=== PATIENT | female | born 1980 | race Caucasian/White ===

== ENCOUNTER 2017-02-18 21:01 | Inpatient (IN) | payer MEDICAID ==
[~2017-02-18] VITALS: Ht 157.5 cm; Wt 83.0 kg
[~2017-02-18 21:01] MED LIST: ACET-2619; PREN-385 PO
[2017-02-18] MEDS ORDERED: OXYTOCIN 10 UNITS/ML VIAL IM ONE (21:35)
[2017-02-18] MEDS ORDERED: PROMETHAZINE 25 MG/ML VIAL IVP PRN (21:35)
[2017-02-18] MEDS ORDERED: OXYTOCIN 20 UNITS/LR PREMIX 1,000 ML IV SCH (21:35)
[2017-02-18] MEDS ORDERED: NALBUPHINE HYDROCHLORIDE 10 MG/ML VIAL IVP PRN (21:35)
[2017-02-18] MEDS ORDERED: AMPICILLIN 2,000 MG in NACL 0.9% 100 ML IV SCH (21:50)
[2017-02-18 22:12] LABS: BASOPHILS # (AUTO) 0.2 K/uL (0.00-0.22); BASOPHILS % (AUTO) 2.3 % (0.0-2.0); EOSINOPHILS # (AUTO) 0.1 K/uL (0-0.4); EOSINOPHILS % (AUTO) 1.9 % (0.0-4.0); HEMATOCRIT 35.3 % (36-48); HEMOGLOBIN 11.7 g/dL (12.0-16.0); LYMPHOCYTES # (AUTO) 1.9 K/uL (2.5-16.5); LYMPHOCYTES % (AUTO) 28.2 % (20.5-51.1); MEAN CORPUSCULAR HEMOGLOBIN 30 pg (27-31); MEAN CORPUSCULAR HGB CONC 33 g/dL (33-37); MEAN CORPUSCULAR VOLUME 91 fL (80-94); MONOCYTES # (AUTO) 0.5 K/uL (0.8-1.0); MONOCYTES % (AUTO) 8.2 % (1.7-9.3); NEUTROPHILS # (AUTO) 3.9 K/uL (1.8-7.7); NEUTROPHILS % (AUTO) 59.4 % (42.2-75.2); PLATELET COUNT (AUTO) 178 K/uL (140-450); RED CELL DISTRIBUTION WIDTH 13.8 % (11.6-13.7); WHITE BLOOD COUNT (AUTO) 6.6 K/uL (4.8-10.8)
[2017-02-18 22:17] LABS: ANION GAP 12.1 (8-16); CALCIUM 8.4 mg/dL (8.5-10.1); CARBON DIOXIDE 23.4 mmol/L (21-32); CREATININE 0.6 mg/dL (0.6-1.3); POTASSIUM 3.5 mmol/L (3.5-5.1)
[2017-02-18] MEDS ORDERED: AMPICILLIN 2,000 MG VIAL ONE (22:17)
[2017-02-18 22:19] LABS: APPEARANCE,URINE CLEAR (CLEAR); BILIRUBIN,URINE NEGATIVE (NEGATIVE); BLOOD, URINE NEGATIVE (NEGATIVE); COLOR,URINE YELLOW (YELLOW); LEUKOCYTE ESTERASE ,URINE TRACE (NEGATIVE); NITRITE, URINE NEGATIVE (NEGATIVE); PH,URINE 6.5 (5.0-9.0); PROTEIN,URINE NEGATIVE (NEGATIVE); UGLUCOSE NEGATIVE (NEGATIVE); UROBILINOGEN,URINE 0.2 EU/dL (0.2 - 1)
[2017-02-18 22:21] LABS: BACTERIA,URINE RARE /HPF (None Seen); RBC,URINE 0-3 /HPF (0-5); WBC,URINE 0-3 /HPF (0-5)
[2017-02-18 22:23] LABS: ALBUMIN 2.6 g/dL (3.4-5.0); TOTAL BILIRUBIN 0.4 mg/dL (0.0-1.0); TOTAL PROTEIN, SERUM 6.3 g/dL (6.4-8.2)
[2017-02-18] MEDS: LACTATED RINGERS 1,000 ML IV SCH (22:38)
[2017-02-18] MEDS ORDERED: FERR325E14 PO (22:55)
[2017-02-18 22:59] VITALS: BP 125/74
[2017-02-19] MEDS: AMPICILLIN 1,000 MG in NACL 0.9% 50 ML IV SCH ×2 (03:00→14:45)
[2017-02-19] MEDS ORDERED: AMPICILLIN 1,000 MG VIAL ONE ×4 (03:05→14:43)
--- NOTE | 2017-02-19 09:03 | NUR ---
PATIENT HAS BEEN SCREENED AND CATEGORIZED LOW NUTRITION RISK. PATIENT WILL BE SEEN WITHIN 7 DAYS OF ADMISSION. 02/25/[address]
[2017-02-19] MEDS ORDERED: OXYTOCIN 20 UNITS/LR PREMIX 1,000 ML IV ONE (11:52)
[2017-02-19] MEDS ORDERED: OXYTOCIN 20 UNITS/LR PREMIX 1,000 ML IV SCH (12:25)
[2017-02-19] MEDS ORDERED: ROPIVACAINE 0.2%/NS PREMIX 250 ML EPI ONE (12:59)
[2017-02-19] MEDS: LACTATED RINGERS 1,000 ML IV SCH (13:08)
[2017-02-19] MEDS ORDERED: OXYTOCIN 10 UNITS/ML VIAL ONE (14:54)
[2017-02-19] MEDS ORDERED: oxyCODONE/APAP 5/325 MG 1 TAB TAB PO PRN (15:15)
[2017-02-19] MEDS ORDERED: MEASLES, MUMPS, AND RUBELLA 1 VIAL SQVAC PRN (15:15)
[2017-02-19] MEDS ORDERED: OXYTOCIN 10 UNITS/ML VIAL IM PRN (15:15)
[2017-02-19] MEDS ORDERED: METHYLERGONOVINE 0.2 MG TAB PO PRN (15:15)
[2017-02-19] MEDS ORDERED: WITCH HAZEL 40 PAD PACKAGE TP PRN (15:15)
[2017-02-19] MEDS ORDERED: SODIUM PHOSPHATE 118 ML ENEM RC PRN (15:15)
[2017-02-19] MEDS ORDERED: TEMAZEPAM 15 MG CAP PO PRN (15:15)
[2017-02-19] MEDS ORDERED: BENZOCAINE/MENTHOL 20%-0.5% 60 GM CAN TP PRN (15:15)
[2017-02-19] MEDS ORDERED: BISACODYL 10 MG SUPP RC PRN (15:15)
[2017-02-19] MEDS ORDERED: METHYLERGONOVINE 0.2 MG/ML AMP IM PRN (15:15)
[2017-02-19] MEDS: HYDROcodone/APAP 5/325 MG 1 TAB TAB PO PRN (20:40)
[2017-02-19] MEDS ORDERED: DOCUSATE SOD/SENNA 50/8.6 MG 1 TAB PO SCH (21:00)
[2017-02-20] MEDS: HYDROcodone/APAP 5/325 MG 1 TAB TAB PO PRN ×2 (04:29→22:28)
[2017-02-20 06:28] LABS: HEMATOCRIT 35.9 % (36-48); HEMOGLOBIN 11.7 g/dL (12.0-16.0)
[2017-02-20 08:36] LABS: HEPATITIS B SURFACE ANTIGEN Negative (Negative); RUBELLA AB IGG 3.71 index (Immune >0.99)
[2017-02-20] MEDS ORDERED: DOCUSATE SOD/SENNA 50/8.6 MG 1 TAB PO SCH (21:00)
[2017-02-21] MEDS: HYDROcodone/APAP 5/325 MG 1 TAB TAB PO PRN (06:53)
== END 2017-02-21 17:00 | disposition home or self-care (01) | DRG 560 ==
LOC: MLD 21:01 → OBSVTOIN 21:31 → MFCC 02-19 20:20
PROVIDERS: ADMIT Obstetrics & Gynecology; ATTEND Obstetrics & Gynecology
PROC: 10E0XZZ Delivery of Products of Conception, External Approach (ICD-10-PCS; principal; 2017-02-19)
PROC: 3E0S3CZ (ICD-10-PCS; 2017-02-19)
PROC: 00HU33Z Insertion of Infusion Device into Spinal Canal, Percutaneous Approach (ICD-10-PCS; 2017-02-19)
PROC: 3E0234Z Introduction of Serum, Toxoid and Vaccine into Muscle, Percutaneous Approach (ICD-10-PCS; 2017-02-20)
DX: O99.824 Streptococcus B carrier state complicating childbirth (principal); Z23 Encounter for immunization; Z37.0 Single live birth; Z3A.39 39 weeks gestation of pregnancy; Z82.49 Family history of ischemic heart disease and other diseases of the circulatory system
CPT/HCPCS: 36415; 51702; 59409; 76815; 80053; 81001; 85018; 85025; 86592; 86762; 86886; 86900; 86901; 87340; 87653-90; 90707; 90715; G0378; J0290; J2590; J2795; J7120; Q0092

== ENCOUNTER 2017-11-13 05:00 | Emergency (ER) | payer MEDICAID ==
[~2017-11-13] VITALS: Ht 157.5 cm; Wt 87.8 kg
[~2017-11-13 05:00] MED LIST changes: +FERR325E14 PO; -PREN-385 PO
[2017-11-13 05:05] VITALS: BP 143/87
--- NOTE | 2017-11-13 05:13 | NUR ---
PT.AMBULATED TO ER BED 1
[2017-11-13] MEDS ORDERED: LORazepam 1 MG TAB PO ONE (05:25)
--- NOTE | 2017-11-13 05:25 | NUR ---
36 Y/O F W/C/O CHEST PAIN/PALPITATION/NAUSEA/L UPPER ABD PAIN X LAST THURSDAY 5 DAYS AGO AND NUMBNESS TO L ARM X LAST NIGHT. MED HX HYPERLIPEDEMIA.
[2017-11-13 05:48] LABS: BASOPHILS % (AUTO) 0.2 % (0.0-2.0); EOSINOPHILS # (AUTO) 0.1 K/uL (0-0.4); EOSINOPHILS % (AUTO) 1.4 % (0.0-4.0); HEMATOCRIT 36.1 % (36-48); HEMOGLOBIN 12.2 g/dL (12.0-16.0); LYMPHOCYTES # (AUTO) 2.4 K/uL (2.5-16.5); LYMPHOCYTES % (AUTO) 47.1 % (20.5-51.1); MEAN CORPUSCULAR HEMOGLOBIN 30 pg (27-31); MEAN CORPUSCULAR HGB CONC 34 g/dL (33-37); MEAN CORPUSCULAR VOLUME 88.7 fL (80-94); MONOCYTES # (AUTO) 0.4 K/uL (0.8-1.0); MONOCYTES % (AUTO) 7.1 % (1.7-9.3); NEUTROPHILS # (AUTO) 2.3 K/uL (1.8-7.7); NEUTROPHILS % (AUTO) 44.2 % (42.2-75.2); PLATELET COUNT (AUTO) 194 K/uL (140-450); RED BLOOD CELL COUNT(AUTO) 4.07 MIL/uL (4.20-5.40); WHITE BLOOD COUNT (AUTO) 5.1 K/uL (4.8-10.8)
--- NOTE | 2017-11-13 05:51 | NUR ---
PT RESTING IN BED, NSR ON MONITOR, NO S/S OF DISTRESS NOTED. AWATING FOR RESULTS.
[2017-11-13 05:58] LABS: ANION GAP 15.1 (8-16); CREATININE 0.7 mg/dL (0.6-1.3); POTASSIUM 3.1 mmol/L (3.5-5.1)
[2017-11-13 06:04] LABS: ALBUMIN 3.6 g/dL (3.4-5.0); TOTAL BILIRUBIN 0.8 mg/dL (0.0-1.0)
[2017-11-13 06:10] LABS: CREATINE KINASE MB 2.2 ng/mL (0-3.6)
--- NOTE | 2017-11-13 06:41 | NUR ---
PT ASLEEP VSS, ON MONITOR,WILL CONT TO MONITOR.
[2017-11-13 06:50] VITALS: BP 113/76
== END 2017-11-13 06:50 | disposition home or self-care (01) ==
LOC: MED 05:00
DX: R07.89 Other chest pain (principal); R00.2 Palpitations; R11.0 Nausea
CPT/HCPCS: 36415; 71045; 80053; 82550; 82553; 83690; 84484; 85025; 93005; 99285; Q0092

== ENCOUNTER 2018-12-18 01:35 | Emergency (ER) | payer MEDICAID ==
[~2018-12-18] VITALS: Ht 167.6 cm; Wt 70.3 kg
[2018-12-18 01:38] VITALS: BP 135/79
--- NOTE | 2018-12-18 01:45 | NUR ---
PT AMBULATED TO ER BED 2
--- NOTE | 2018-12-18 01:45 | NUR ---
PT AMBULATED TO ROOM 2
--- NOTE | 2018-12-18 01:48 | NUR ---
DR. PALACIOS BEDSIDE EVALUATING PT
--- NOTE | 2018-12-18 01:50 | NUR ---
37 Y/O F PRESENTED TO ED WITH C/O CHEST PAIN X3 DAYS. 7/10 PAIN, DULL. EXPERIENCES CHEST PAIN DURING COUGH ONLY. C/O SOUGH THROAT AND R EAR PAIN. PER PT " HAVE RINGING IN MY RIGHT EAR." TYMPANIC MEMBRANE INTACT, NO REDNESS NOTED. VOMITTED M3NOSMS AFTER COUGHING ATTACK YESTERDAY. NO ERYTHEMA OR EXUDATED NOTED TO THROAT. BED IN LOWEST POSITON. ERMD NOTIFIED. WILL CONTINUE TO MONITOR.
[2018-12-18] MEDS ORDERED: KETOROLAC 60 MG/2 ML VIAL IM ONE (01:55)
--- NOTE | 2018-12-18 02:15 | NUR ---
Patient discharged with v/s stable. Written and verbal after care instructions given and explained. Patient alert, oriented and verbalized understanding of instructions. Ambulatory with steady gait. All questions addressed prior to discharge. ID band removed. Patient advised to follow up with PMD. Rx of Motrin and Prednisone given. Patient educated on indication of medication including possible reaction and side effects. Opportunity to ask questions provided and answered.
== END 2018-12-18 02:15 | disposition home or self-care (01) ==
LOC: MED 01:35
DX: J02.9 Acute pharyngitis, unspecified (principal); R07.89 Other chest pain; R05 Cough; R11.10 Vomiting, unspecified; H92.01 Otalgia, right ear; Z79.1 Long term (current) use of non-steroidal anti-inflammatories (NSAID); Z79.899 Other long term (current) drug therapy
CPT/HCPCS: 93005; 96372; 99283; J1885

== ENCOUNTER 2022-06-01 05:53 | Emergency (ER) | payer MEDICAID ==
[~2022-06-01] VITALS: Ht 157.5 cm; Wt 81.6 kg
[2022-06-01 05:56] VITALS: BP 150/89
--- NOTE | 2022-06-01 05:56 | NUR ---
TO BED AMBULATORY
--- NOTE | 2022-06-01 06:00 | NUR ---
PT A&O X4. PT C/O RIGHT EAR PAIN. NO OTHER COMPLAINTS.
--- NOTE | 2022-06-01 06:14 | NUR ---
Patient being evaluated by physician Karin Gregory at bedside.
[2022-06-01] MEDS ORDERED: AMOX1TAB8 PO (06:26)
[2022-06-01] MEDS ORDERED: OFLO5SOL27 RIGHT EAR (06:26)
[2022-06-01] MEDS ORDERED: IBUP-2213 PO (06:26)
--- NOTE | 2022-06-01 06:40 | NUR ---
Patient discharged with v/s stable. Written and verbal after care instructions given and explained. Patient alert, oriented and verbalized understanding of instructions. Ambulatory with steady gait. All questions addressed prior to discharge. ID band removed. Patient advised to follow up with PMD. Rx of AMOXICILLIN AND IBUPROFEN given. Patient educated on indication of medication including possible reaction and side effects. Opportunity to ask questions provided and answered.
[2022-06-01 06:44] VITALS: BP 150/89
== END 2022-06-01 06:44 | disposition home or self-care (01) ==
LOC: MED 05:53
DX: H60.91 Unspecified otitis externa, right ear (principal); Z79.899 Other long term (current) drug therapy
CPT/HCPCS: 99283